=== PATIENT | male | born 1950 | race Caucasian/White ===

== ENCOUNTER 2022-10-22 07:18 | Day surgery (SDC) | payer OTHER ==
[2022-10-22] MEDS ORDERED: Ringers Lactate 1,000 ML IV ONE (07:53)
[2022-10-22] MEDS ORDERED: LIDOCAINE 1% MPF 5 ML VIAL ONE (09:24)
[2022-10-22] MEDS ORDERED: propofoL 200 MG/20 ML VIAL IV ONE ×2 (09:24)
[2022-10-22 14:44] VITALS: O2SAT 97
[2022-10-22 14:49] VITALS: BP 105/71; TEMP 97.5
== END 2022-10-22 10:17 | disposition home or self-care (01) ==
LOC: OR 07:18
PROVIDERS: ATTEND Internal Medicine Gastroenterology
PROC: 0DJD8ZZ Inspection of Lower Intestinal Tract, Via Natural or Artificial Opening Endoscopic (ICD-10-PCS; principal; 2022-10-22 09:00)
DX: Z12.11 Encounter for screening for malignant neoplasm of colon (principal); K57.30 Diverticulosis of large intestine without perforation or abscess without bleeding; K64.8 Other hemorrhoids; K64.4 Residual hemorrhoidal skin tags
CPT/HCPCS: J2001; J2704; J7120